=== PATIENT | female | born 1960 | race Caucasian/White ===

== ENCOUNTER 2018-05-07 07:48 | Emergency (ER) | payer OTHER ==
[~2018-05-07] VITALS: Ht 170.2 cm; Wt 104.3 kg
[~2018-05-07 07:48] MED LIST: ASCO500 PO; ATOR40TA PO; B-12500 MCG PO; CALCA500CH PO; Cleocin HCl300 MG PO; FOLI400 PO; HYDACE5 PO; HYDACE5325 PO; IBUP400 PO; IBUP600 PO; IRON PO; LISI5 PO; Ultram50 MG PO; VITAMIN D31000 UNIT PO; WOMEN'S MULTIVITAMIN PO; [UNRECOGNIZED DRUG - OTHER] PO
[2018-05-07] MEDS ORDERED: CLIN300 PO (08:18)
[2018-05-07] MEDS ORDERED: PAROEX473 ML MM (08:18)
== END 2018-05-07 08:24 | disposition home or self-care (01) ==
LOC: ER 07:48
DX: K05.10 Chronic gingivitis, plaque induced (principal); I10 Essential (primary) hypertension; E78.5 Hyperlipidemia, unspecified; Z88.8 Allergy status to other drugs, medicaments and biological substances; Z88.0 Allergy status to penicillin; Z88.2 Allergy status to sulfonamides; Z79.899 Other long term (current) drug therapy
CPT/HCPCS: 99282

== ENCOUNTER 2018-12-05 03:07 | Emergency (ER) | payer OTHER ==
[~2018-12-05] VITALS: Ht 170.2 cm; Wt 102.1 kg
[~2018-12-05 03:07] MED LIST changes: +CLIN300 PO; +PAROEX473 ML MM
[2018-12-05] MEDS ORDERED: Acetaminophen-1 EAC1 PO (04:15)
[2018-12-05] MEDS ORDERED: Cleocin HCl300 MG PO (04:15)
== END 2018-12-05 04:31 | disposition home or self-care (01) ==
LOC: ER 03:07
DX: K08.89 Other specified disorders of teeth and supporting structures (principal); I10 Essential (primary) hypertension; E78.5 Hyperlipidemia, unspecified; Z88.1 Allergy status to other antibiotic agents; Z88.0 Allergy status to penicillin; Z88.2 Allergy status to sulfonamides; Z79.899 Other long term (current) drug therapy
CPT/HCPCS: 99282

== ENCOUNTER → 2019-03-27 | Outpatient (CLI) | payer OTHER ==
[~2019-03-27] MED LIST changes: +Acetaminophen-1 EAC1 PO
== END ==
LOC: LAB EV 17:28 → LAB SHORT 17:28
DX: N39.0 Urinary tract infection, site not specified (principal)
CPT/HCPCS: 87077; 87086; 87186

== ENCOUNTER → 2019-10-11 | Outpatient (CLI) | payer OTHER | END | disposition home or self-care (01) | LOC: LAB EV 14:02 → LAB SHORT 14:02 | DX: N39.0 Urinary tract infection, site not specified (principal) | CPT/HCPCS: 87077; 87086; 87186 ==

== ENCOUNTER → 2020-10-31 | Outpatient (CLI) | payer OTHER ==
[~2020-10-31] MED LIST changes: +Naprosyn500 MG PO
== END | disposition home or self-care (01) ==
LOC: LAB 10:05 → LAB SHORT 10:05
DX: N39.0 Urinary tract infection, site not specified (principal)
CPT/HCPCS: 87077; 87086; 87186

== ENCOUNTER → 2021-01-26 | Outpatient (CLI) | payer OTHER | END | disposition home or self-care (01) | LOC: LAB SHORT 18:57 → LAB 18:57 | DX: N39.0 Urinary tract infection, site not specified (principal) | CPT/HCPCS: 87086 ==

== ENCOUNTER → 2022-09-03 | Outpatient (CLI) | payer OTHER | END | disposition home or self-care (01) | LOC: LAB SHORT 12:36 → LAB 12:36 | DX: R30.0 Dysuria (principal) | CPT/HCPCS: 87086 ==

== ENCOUNTER → 2023-01-20 | Outpatient (CLI) | payer OTHER | END | disposition home or self-care (01) | LOC: LAB SHORT 16:48 → LAB 16:48 | DX: N39.0 Urinary tract infection, site not specified (principal) | CPT/HCPCS: 87086 ==

== ENCOUNTER → 2023-12-29 | Outpatient (CLI) | payer OTHER | LOC: LAB 14:51 → LAB SHORT 14:51 | DX: N39.0 Urinary tract infection, site not specified (principal) | CPT/HCPCS: 87086 ==

== ENCOUNTER → 2024-06-18 | Outpatient (CLI) | payer OTHER | END | disposition home or self-care (01) | LOC: LAB SHORT 13:35 → LAB 13:35 | DX: N39.0 Urinary tract infection, site not specified (principal); R31.9 Hematuria, unspecified | CPT/HCPCS: 87077; 87086; 87186 ==

== ENCOUNTER → 2024-07-01 | Outpatient (CLI) | payer OTHER | LOC: LAB 08:21 → LAB SHORT 08:21 | DX: C43.62 Malignant melanoma of left upper limb, including shoulder (principal); D49.2 Neoplasm of unspecified behavior of bone, soft tissue, and skin | CPT/HCPCS: 88305 ==

== ENCOUNTER → 2025-01-24 | Outpatient (CLI) | payer OTHER | LOC: LAB 19:13 → LAB SHORT 19:13 | DX: N39.0 Urinary tract infection, site not specified (principal) | CPT/HCPCS: 87077; 87086; 87186 ==

== ENCOUNTER → 2025-02-26 | Outpatient (CLI) | payer OTHER | LOC: LAB SHORT 12:54 → LAB 12:54 | DX: N39.0 Urinary tract infection, site not specified (principal); R31.9 Hematuria, unspecified | CPT/HCPCS: 87077; 87086; 87186 ==

== ENCOUNTER → 2025-03-09 | Outpatient (CLI) | payer OTHER | LOC: LAB SHORT 16:24 → LAB 16:24 | DX: N39.0 Urinary tract infection, site not specified (principal); R31.9 Hematuria, unspecified | CPT/HCPCS: 87086 ==